=== PATIENT | female | born 1980 | race Two or more races ===

== ENCOUNTER 2018-10-17 11:57 | Outpatient (CLI) | payer OTHER | END 2018-10-17 14:04 | disposition home or self-care (01) | LOC: RX STUDY 11:57 | DX: R10.2 Pelvic and perineal pain (principal); N80.0 Endometriosis of uterus; D25.9 Leiomyoma of uterus, unspecified ==

== ENCOUNTER 2021-03-31 09:40 | Outpatient (CLI) | payer OTHER | END 2021-03-31 09:49 | disposition home or self-care (01) | LOC: RX STUDY 09:40 | PROVIDERS: ATTEND Obstetrics & Gynecology Gynecology | DX: N80.6 Endometriosis in cutaneous scar (principal) ==

== ENCOUNTER 2022-04-09 09:44 | Outpatient (CLI) | payer OTHER | END 2022-04-09 10:01 | disposition home or self-care (01) | LOC: SONOGRAMA 09:44 | PROVIDERS: ATTEND Obstetrics & Gynecology Gynecology | DX: R93.89 Abnormal findings on diagnostic imaging of other specified body structures (principal); N84.0 Polyp of corpus uteri; D25.0 Submucous leiomyoma of uterus ==